=== PATIENT | female | born 1980 | race African-American/Black ===

== ENCOUNTER 2021-08-25 11:07 | Emergency (ER) | payer MEDICAID ==
[~2021-08-25] VITALS: Ht 147.3 cm; Wt 59.1 kg
[2021-08-25 11:22] VITALS: BP 131/77
== END 2021-08-25 12:18 | disposition home or self-care (01) ==
LOC: EMS 11:10
DX: G47.00 Insomnia, unspecified (principal); Z76.0 Encounter for issue of repeat prescription
CPT/HCPCS: 99281; Z7502